=== PATIENT | female | born 1970 | race American Indian/Alaskan Native ===

== ENCOUNTER 2016-06-26 05:14 | Emergency (ER) | payer SELFPAY ==
[2016-06-26 06:33] VITALS: BP 120/82
--- NOTE | 2016-06-26 08:50 | Emergency Department Report ---
ED Lower Extremity HPI - General Chief Complaint: Extremity Problem,Nontraumatic Stated Complaint: LT KNEE PAIN Time Seen by Provider: 06/26/16 07:25 Source: patient Mode of arrival: Ambulatory Limitations: No Limitations - History of Present Illness Initial Comments: Left knee pain -: week(s) (1.5) Type of Injury: unknown Severity: moderate Severity scale (0 -10): 4 Improves With: rest Worsens With: movement Treatments Prior to Arrival: NSAIDS - Related Data Previous Rx's Medication Instructions Recorded Last Taken Type Tramadol HCl/Acetaminophen 1 each PO Q6HR PRN #30 tablet 06/26/16 Unknown Rx [Ultracet] predniSONE [Deltasone] 60 mg PO QDAY #15 tab 06/26/16 Unknown Rx Allergies Allergy/AdvReac Type Severity Reaction Status Date / Time No Known Allergies Allergy Verified 06/26/16 06:30 ED Review of Systems ROS: Stated complaint: LT KNEE PAIN Other details as noted in HPI Constitutional: denies: chills, fever Eyes: denies: eye pain, eye discharge, vision change ENT: denies: ear pain, throat pain Respiratory: denies: cough, shortness of breath, wheezing Cardiovascular: denies: chest pain, palpitations, dyspnea on exertion Endocrine: no symptoms reported Gastrointestinal: denies: abdominal pain, nausea, diarrhea Genitourinary: denies: urgency, dysuria, discharge Musculoskeletal: arthralgia. denies: back pain, joint swelling, myalgia Skin: denies: rash, lesions Neurological: denies: headache, weakness, paresthesias Psychiatric: denies: anxiety, depression Hematological/Lymphatic: denies: easy bleeding, easy bruising ED Past Medical Hx - Past Medical History Previous Medical History?: No - Surgical History Past Surgical History?: No - Social History Smoking Status: Never Smoker Substance Use Type: None - Medications Home Medications: Home Medications Medication Instructions Recorded Confirmed Last Taken Type Tramadol HCl/Acetaminophen 1 each PO Q6HR PRN #30 tablet 06/26/16 Unknown Rx [Ultracet] predniSONE [Deltasone] 60 mg PO QDAY #15 tab 06/26/16 Unknown Rx ED Physical Exam - General Limitations: No Limitations General appearance: alert, in no apparent distress - Head Head exam: Present: atraumatic, normocephalic - Eye Eye exam: Present: normal appearance - ENT ENT exam: Present: normal exam, mucous membranes moist - Neck Neck exam: Present: normal inspection - Respiratory Respiratory exam: Present: normal lung sounds bilaterally. Absent: respiratory distress - Cardiovascular Cardiovascular Exam: Present: regular rate, normal rhythm. Absent: systolic murmur, diastolic murmur, rubs, gallop - GI/Abdominal GI/Abdominal exam: Present: soft, normal bowel sounds - Extremities Exam Extremities exam: Present: normal inspection, tenderness - Expanded Lower Extremity Exam Left Hip exam: Present: full ROM. Absent: tenderness, swelling Knee exam: Present: normal inspection, full ROM, tenderness (medial tenderness upper and lower knee joint at MCL), full knee extension. Absent: swelling, dislocation, effusion Lower Leg exam: Present: normal inspection Ankle exam: Present: normal inspection Neuro vascular tendon exam: Present: no vascular compromise. Absent: pulse deficit, motor deficit, sensory deficit, tendon deficit - Back Exam Back exam: Present: normal inspection - Neurological Exam Neurological exam: Present: alert, oriented X3 - Psychiatric Psychiatric exam: Present: normal affect, normal mood - Skin Skin exam: Present: warm, dry, intact, normal color. Absent: rash ED Course Vital Signs 06/26/16 06:30 Temperature 98.3 F Pulse Rate 82 Respiratory 18 Rate Blood Pressure 120/82 O2 Sat by Pulse 100 Oximetry ED Lower Extremity MDM - Radiology Data Radiology results: image reviewed interpreted by me: Degenerative changes with slight medial joint space narrowing. No acute fracture noted - Medical Decision Making Patient placed in knee immobilizer and will refer to ortho for evaluation of possible meniscus etiology. Patient is stable for discharge and in agreement with treatment plan. Critical care attestation.: If time is entered above; I have spent that time in minutes in the direct care of this critically ill patient, excluding procedure time. ED Disposition Clinical Impression: Left knee pain, Knee MCL sprain Disposition: DISCHARGED TO HOME OR SELFCARE Is pt being admited?: No Does the pt Need Aspirin: No Condition: Good Instructions: Knee Pain (ED), Knee Immobilizer (ED) Prescriptions: predniSONE [Deltasone] 60 mg PO QDAY #15 tab Tramadol HCl/Acetaminophen [Ultracet] 1 each PO Q6HR PRN #30 tablet PRN Reason: Pain Referrals: PRIMARY CARE, [Primary Care Provider] - 3-5 Days Time of Disposition: 09:23
--- NOTE | 2016-06-26 09:28 | XRay Report ---
Left knee 3 views: History: Left knee pain. Findings: The medial and lateral compartment grossly appears normal. Articular surface appears unremarkable. There is large spur identified at the superior patella. Suspicion of minimal suprapatellar joint effusion. 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
== END 2016-06-26 09:33 | disposition home or self-care (01) ==
LOC: ED 05:14
DX: S83.8X2A Sprain of other specified parts of left knee, initial encounter (principal); X58.XXXA Exposure to other specified factors, initial encounter; Y93.9 Activity, unspecified; Y99.9 Unspecified external cause status; Y92.9 Unspecified place or not applicable